=== PATIENT | female | born 1955 | race Caucasian/White ===

== ENCOUNTER 2017-01-11 05:21 | Inpatient (IN) | payer BC ==
--- NOTE | ~2017-01-11 | CR72 ---
[facility]. [facility] A Service of [facility] & [facility] RADIOLOGY TEXT RESULTS PATIENT: DADA DARNELL LOCATION: [facility] 335- : 59 UNIT #: [id number] AGE: [address]: Robert Foster MD SEX: F ORDER DR: [id number] [facility] [address]. [place], [place] [address] [id number] MR#: [id number] #: [id number] NAME: DADA DARNELL. : 1955 SEX: F STUDY DATE/TIME: 01/11/2017 4:38 UNIT: CEDOF ROOM: 17352 STUDY DESCRIPTION: CR Chest Single View Portable Attending Physician: Robert Foster M.D. Ordering Physician: Juan Luis Casillas D.O. Primary Care Physician: Teresa May M.D. MEDICAL IMAGING REPORT This report is preliminary unless electronic signature is present EXAM AP portable chest, 01/11/2017 HISTORY 61-year-old female in the ED complaining of new onset shortness of air this evening. TECHNIQUE AP portable chest x-ray. FINDINGS The exam shows no definite active disease in the chest. Scattered band-like chronic pulmonary scarring is present in both lung bases. Heart size and pulmonary vascularity are normal. No acute pulmonary infiltrate or pleural effusion is identified. There has been no change since the previous study of 08/09/2016. IMPRESSION No active disease. Bibasilar pulmonary scarring. No change since 08/09/2016. Dictated by... Irvin Pringle M.D. THIS IS AN ELECTRONICALLY VERIFIED REPORT Irvin Pringle M.D. at 01/15/2017 5:01 PM Jade TD: 01/11/2017 08:39 JOB #: [id number] MEDICAL IMAGING REPORT Page 1 of 1 COPY
--- NOTE | ~2017-01-11 | DS ---
Unit #: [id number] #: [id number] Patient: DADA DARNELL [id number] [facility]. [address] [address] [id number] I MR#: [id number] NAME: DADA DARNELL ROOM: 335 Age: 61 Sex: F Admission Date: 01/11/2017 : 1955 Discharge Date: 01/15/2017 Attending Physician: Robert Foster M.D. Primary Care Physician: Teresa May M.D. DISCHARGE SUMMARY DISCHARGE DIAGNOSES 1. Acute on chronic hypoxemic respiratory failure. 2. Acute exacerbation of chronic obstructive pulmonary disease. 3. Tobacco abuse. 4. Gastroesophageal reflux. 5. Hyperglycemia. 6. Mild thrombocytopenia. DISCHARGE MEDICATIONS Albuterol, RespiClick 2 puffs every 6 hours as needed, Symbicort 160/4.5 two puffs b.i.d., Spiriva HandiHaler one inhalation daily, prednisone 40 mg for four days decreased by 10 mg every four days until off, clonazepam 1 mg every morning and 2 mg q.h.s., home oxygen at 2 L, multivitamin daily, OxyContin 15 q.4-6 hours as needed for pain, Prilosec 40 mg daily, Levaquin 500 mg daily x3 days, Synthroid 175 mcg daily. FOLLOWUP Follow up with Dr. Oden in 3 weeks. HOSPITAL COURSE A 61-year-old white female with history of severe COPD and chronic respiratory failure, who was admitted with exacerbation of COPD, failure to respond to outpatient treatment. Her arterial blood gases revealed pH 7.39, pCO2 of 47, pO2 of 65 on 3 L. Chemistries were remarkable for a glucose of 173, creatinine of 0.5, alkaline phosphatase was 138. Coags were normal. White count was 8500, hematocrit was 49.5, platelet count was 126,000. Follow up platelet count was 136,000. She was admitted, treated with inhaled bronchodilators of IV Solu-Medrol and antibiotics in the form of Levaquin. She was placed on DVT prophylaxis. Her other routine medications were continued. She responded to treatment with decrease in her wheezing. Her steroids were weaned. Prior to discharge, she was given Depo-Medrol 80 mg IM. She will be discharged home on the above-mentioned medications plus or home oxygen. To follow up with Dr. Oden in 2 to 3 weeks. Addendum: Note that her elevated blood sugars were covered with sliding scale insulin. Her last blood sugars were 96, 231, 160, 146, and 145. Dictated by... Marcus Talbert M.D. Unit #: [id number] #: [id number] Patient: DADA DARNELL HERMINIA/wai TD: 01/16/2017 03:22 JOB #: [id number] DISCHARGE SUMMARY Page 1 of 1 X Marcus Talbert MD X DISCHARGE SUMMARY
--- NOTE | ~2017-01-11 | CO ---
Unit #: [id number] #: [id number] Patient: DADA DARNELL [id number] [address] [address] [id number] I MR#: [id number] NAME: DADA DARNELL ROOM: 51491 Age: 61 Sex: F Admission Date: 01/11/2017 : 1955 Attending Physician: Robert Foster M.D. Primary Care Physician: Teresa May M.D. Consultation Date: 01/11/2017 CONSULTATION REPORT HISTORY OF PRESENT ILLNESS Ms. Darnell is a 61-year-old white female with a history of chronic obstructive pulmonary disease, chronic respiratory failure, tobacco abuse, who presents with about a 1-week history of increasing shortness of breath. She was seen in our office and given Depo-Medrol and an antibiotic and Q-Vern was added to her normal regimen of Spiriva, Symbicort and albuterol. She failed to improve and presented to the emergency room. She has had a cough productive of some white sputum. No fever or chills. Her past history is significant for chronic pain followed by Dr. Frankel, chronic obstructive pulmonary disease, hypothyroidism, chronic respiratory failure maintained on home O2, gastroesophageal reflux. PAST SURGICAL HISTORY 1. Cholecystectomy. 2. Hysterectomy. 3. Bilateral cataract extractions. SOCIAL HISTORY Continued to smoke cigarettes up until five days ago. Denies illicit drugs or alcohol. FAMILY HISTORY No familial lung disease. ALLERGIES Sulfa. HOME MEDICATIONS 1. Prilosec. 2. Symbicort. 3. Spiriva. 4. Oxygen. 5. OxyContin. 6. Levaquin. 7. Q-Vern. 8. Prednisone. 9. Klonopin. 10. ProAir. 11. Synthroid. 12. Animal shape vitamins. REVIEW OF SYSTEMS CONSTITUTIONAL: No fevers and chills. HEENT: Some occasional rhinorrhea, nasal congestion. Unit #: [id number] #: [id number] Patient: DADA DARNELL PULMONARY: As noted. CARDIAC: No chest pain or palpitations. GI: No nausea or vomiting. : No hematuria or dysuria. ENDOCRINE: Denies diabetes. Does have hypothyroidism. NEUROLOGIC: No unilateral weakness or numbness. SKIN: No rash. MUSCULOSKELETAL: Does have chronic pain, back and shoulders. PHYSICAL EXAMINATION VITALS: Blood pressure 128/57, pulse 84, respiratory rate 13, afebrile. HEENT: Normocephalic, atraumatic. Pupils equal, round and reactive. Sclerae nonicteric. Nasal passages patent. Posterior pharynx clear. Mallampati 3. Thrush on her tongue. Mucous membranes moist. NECK: Supple. Trachea midline. No cervical or supraclavicular lymphadenopathy. LUNGS: Some mild expiratory wheeze bilaterally. HEART: Regular rate and rhythm. Could not appreciate murmur, rub or gallop. ABDOMEN: Nontender. Bowel sounds present. No hepatosplenomegaly. EXTREMITIES: Without clubbing, cyanosis or edema. NEUROLOGIC: Awake, alert and oriented times three. Cranial nerves are grossly intact. Muscle strength symmetric bilaterally. Affect calm. SKIN: Warm and dry. Some bruising on her left upper arm anteriorly and posteriorly. DIAGNOSTIC STUDIES IMAGING: Chest x-ray personally reviewed. Chronic scarring. No acute infiltrate, mass or congestion. LABORATORY: Arterial blood gas 7.39, pCO2 47, pO2 65 on 3 liters. Chemistry is reviewed and unremarkable. Glucose 173. Coags normal. White blood cell count 8,500, hematocrit 49.5, platelet count 126,000. ASSESSMENT 1. Acute exacerbation of chronic obstructive pulmonary disease. Unresponsive to outpatient treatment. 2. Acute on chronic respiratory failure. 3. Tobacco abuse. 4. Hypothyroidism. 5. Gastroesophageal reflux disease. 6. Mild hyperglycemia. Probably steroid related. 7. Mild thrombocytopenia. PLAN Will treat with inhaled bronchodilators, IV Solu-Medrol, cover with antibiotics. Will check Accu-Cheks and place on sliding scale insulin for hyperglycemia. Will place on DVT prophylaxis with Lovenox. Administer O2 to maintain adequate saturations. Have counseled smoking cessation. Further recommendations pending this. Will follow up on CBC and mild thrombocytopenia with lab work in the morning. Dictated by... Marcus Talbert M.D. HERMINIA/dorina Unit #: [id number] #: [id number] Patient: DADA DARNELL TD: 01/11/2017 12:28 JOB #: [id number] CC: Mariusz Lopez M.D. CONSULTATION REPORT Page 1 of 1 X Marcus Talbert MD CONSULTATION REPORT
--- NOTE | ~2017-01-11 | EKG ---
PATIENT: DADA DARNELL UNIT #: [id number] Ventricular Rate: 104 BPM Atrial Rate: 104 BPM P-R Interval: 146 ms QRS Duration: 80 ms Q-T Interval: 346 ms QTC Calculation(Bezet): 454 ms P [place]: 84 degrees Calculated R [place]: 72 degrees Calculated T [place]: 69 degrees Diagnosis Line: Sinus tachycardia Diagnosis Line: Right atrial enlargement Diagnosis Line: Borderline ECG Diagnosis Line: No previous ECGs available Diagnosis Line: Confirmed by AMAN SHAH MD ([id number]) on 01/14/2017 Diagnosis Line: 10:43:07 PM INTERPRETING MD: ALYSSA GUPTA
[2017-01-11 04:49] LABS: ARTERIAL BLD GAS O2 SATURATION 91.7 % (90.0-100.0); ARTERIAL BLOOD GAS CARBOXY HB 1.3 %sat (0.0-9.0); ARTERIAL BLOOD GAS HCO3 28.7 mmol/L; ARTERIAL BLOOD GAS MET HB 0.8 %sat (0.0-2.0); ARTERIAL BLOOD GAS PCO2 47.2 mmHg (35.0-45.0); ARTERIAL BLOOD GAS pH 7.393 (7.350-7.450)
[2017-01-11 04:52] LABS: ARTERIAL BLOOD GAS PO2 65.7 mmHg (80.0-100)
[2017-01-11 04:53] LABS: ARTERIAL BLOOD GAS ALLEN TEST Y; ARTERIAL BLOOD GAS ART SITE RIGHT RADIAL; ARTERIAL BLOOD GAS DELIVERY NASAL CANNULA; ARTERIAL DRAW? YES
[2017-01-11 04:59] LABS: BASOPHIL% 0.1 % (0-2.5); HEMATOCRIT 49.5 % (35.0-45.0); HEMOGLOBIN 16.8 gm/dL (12.0-16.0); LYMPHOCYTE# 1.6 X10e3 (1.0-3.5); LYMPHOCYTE% 18.7 % (17.0-45.0); MEAN CELL VOLUME 94.3 FL (83-96); MEAN PLATELET VOLUME 9.7 FL (6.5-11.5); MONOCYTE# 0.4 X10e3 (0-1.0); MONOCYTE% 4.2 % (3.0-12.0); NEUTROPHIL# 6.6 X10e3 (1.5-7.1); PLATELET COUNT 126 X10e3 (140-420); RED BLOOD COUNT 5.25 X10e (3.90-5.30); RED CELL DISTRIBUTION WIDTH 13.7 % (11.0-15.5); WHITE BLOOD COUNT 8.5 X10e3 (4.0-10.5)
[2017-01-11 05:12] LABS: DIFF IND NO
[2017-01-11 05:20] LABS: PARTIAL THROMBOPLASTIN TIME 27.3 SECONDS (23.5-31.3); PROTHROMBIN TIME (PATIENT) 10.7 SECONDS (9.6-11.5)
[~2017-01-11 05:21] MED LIST: ACETAMINOPHEN PO; ALBUTEROL 0.5ML; ALBUTEROL MININEB NEB; ALBUTEROL17 GM INH; ALPRAZOLAM PO; AUGMENTIN PO; AUGMENTIN875 MG PO; COMBIVENT INH14.7 GM INH; DIFLUCAN PO; DUONEB 2.5-0.5 M3 ML NEB; FORADIL12 MCG IH; GLUCOPHAGE500 MG PO; GLUCOTROL PO; GUAIFENESIN LA600 M1 PO; GUAIFENSEN DM PO; HUMIBID-LA600 MG PO; HUMIBID1200 MG PO; KLONOPIN PO; KLONOPIN1 MG PO; LEVAQUIN; LEVAQUIN PO; LEVAQUIN750 MG PO; LIDODERM30 EA; LIDODERM30 EA TOP; MUCINEX DM TABL1 BOX PO; NYSTATIN5 ML PO; OMEPRAZOLE40 M1 PO; OXYCODONE HCL15 MG PO; OXYCONTIN PO; OXYGEN; OXYGEN INH; PERCOCET 10/3251 TAB PO; PERCOCET10 PO; PREDNISONE PO; PULMICORT200 MCG/AE INH; RANITIDINE HCL300 MG PO; SINGULAIR PO; SPIRIVA18 MCG INH; SYMBICORT INH; SYMBICORT80 INH; SYNTHROID PO; SYNTHROID137 MCG PO; TUSSIONEX PENN473 ML PO
[2017-01-11 05:23] LABS: POC - CKMB 1.4 ng/mL (0.0-7.9); POC - TROPONIN <0.05 ng/mL (<=0.05)
[2017-01-11 05:29] LABS: ALBUMIN SERUM 3.7 g/dL (3.5-5.0); BILIRUBIN, DIRECT 0.2 mg/dL (0.0-0.2); BILIRUBIN,INDIRECT 0.4 mg/dL (0.0-0.9); BILIRUBIN,TOTAL 0.6 mg/dL (0.2-2.0); CALCIUM SERUM 10.1 mg/dL (8.4-10.2); CREATININE SERUM 0.5 mg/dL (0.6-1.4); POTASSIUM 4.1 mmol/L (3.5-5.1); PROTEIN TOTAL SERUM 7.5 g/dL (6.0-8.3)
[2017-01-11 06:03] LABS: INFLUENZA A NEG (NEG); INFLUENZA B NEG (NEG)
[2017-01-11 06:59] LABS: POC - CKMB <1.0 ng/mL (0.0-7.9); POC - TROPONIN <0.05 ng/mL (<=0.05)
[2017-01-11] MEDS ORDERED: OXYCONTIN PO (09:39)
[2017-01-11] MEDS ORDERED: LEVAQUIN750 M1 PO (09:41)
[2017-01-11] MEDS ORDERED: QVAR7.3 G1 INH (09:42)
[2017-01-11] MEDS ORDERED: PREDNISONE PO (09:43)
[2017-01-11] MEDS ORDERED: KLONOPIN0.5 MG PO (09:44)
[2017-01-11] MEDS ORDERED: PROAIR RESPICL90 MCG INH (09:44)
[2017-01-11] MEDS ORDERED: KLONOPIN0.5 M3 PO (09:44)
[2017-01-11] MEDS ORDERED: ANIMAL SHAPES1 EAC2 PO (09:45)
[2017-01-11] MEDS ORDERED: SYNTHROID175 MCG PO (09:45)
[2017-01-12 06:06] LABS: HEMATOCRIT 46.6 % (35.0-45.0); HEMOGLOBIN 15.2 gm/dL (12.0-16.0); MEAN CELL VOLUME 94.9 FL (83-96); MEAN CORPUSCULAR HGB CONC 32.6 g/dL (30-36); RED BLOOD COUNT 4.91 X10e (3.90-5.30); RED CELL DISTRIBUTION WIDTH 13.4 % (11.0-15.5); WHITE BLOOD COUNT 11.9 X10e3 (4.0-10.5)
[2017-01-15] MEDS ORDERED: LEVAQUIN PO (12:38)
[2017-01-15] MEDS ORDERED: PREDNISONE PO (12:38)
[2017-01-15] MEDS ORDERED: NYSTATIN5 ML PO (12:39)
== END 2017-01-15 14:54 | disposition home or self-care (01) | DRG 189 ==
LOC: CED 05:21 → CEDOF 05:52 → C3A PCU 18:05
PROVIDERS: Emergency Medicine; Internal Medicine
DX: J96.21 Acute and chronic respiratory failure with hypoxia (principal); D69.6 Thrombocytopenia, unspecified; Z99.81 Dependence on supplemental oxygen; J44.1 Chronic obstructive pulmonary disease with (acute) exacerbation; F17.210 Nicotine dependence, cigarettes, uncomplicated; K21.9 Gastro-esophageal reflux disease without esophagitis; R73.9 Hyperglycemia, unspecified; Z90.49 Acquired absence of other specified parts of digestive tract; Z90.710 Acquired absence of both cervix and uterus; Z98.42 Cataract extraction status, left eye; Z98.41 Cataract extraction status, right eye; Z88.2 Allergy status to sulfonamides; T38.0X5A Adverse effect of glucocorticoids and synthetic analogues, initial encounter; E03.9 Hypothyroidism, unspecified
CPT/HCPCS: 36415; 36600; 71010; 80048; 80076; 82553; 82803; 82947; 83605; 83880; 84484; 85025; 85027; 85610; 85730; 87804; 93005; 94640; 94664; 94760; 99285; J1650; J1815; J2920